=== PATIENT | female | born 1995 | race Caucasian/White ===

== ENCOUNTER → 2021-08-19 | Outpatient (CLI) | payer BC ==
[~2021-08-19] MED LIST: BACTROBAN NASAL1 G1; FLEXERIL 10 MG10 MG PO; IBUPROFEN600 MG PO; SILVADENE CREAM20 GM TOP
== END ==
LOC: KOH-I 09:28
DX: R22.1 Localized swelling, mass and lump, neck (principal)
CPT/HCPCS: 70490